=== PATIENT | male | born 1985 | race Caucasian/White ===

== ENCOUNTER 2016-10-31 17:47 | Emergency (ER) | payer OTHER ==
[2016-10-31 17:54] VITALS: BP 133/92; PULSE 83; RESP 18; TEMP 98.2; O2SAT 97
[2016-10-31] MEDS ORDERED: TDAP ADULT 0.5 ML INJ (BOOSTRIX) IM ONE (18:28)
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
[2016-10-31] MEDS ORDERED: SKIN ADHESIVE (DERMABOND) 1 EACH TP ONE (18:59)
--- NOTE | 2016-10-31 19:18 | CT ---
Noncontrast Head CT [address] of the Facial Bones History: Technique: Standard noncontrast head CT protocol utilizing axial images was acquired through the harshad varium. Images were reconstructed in multiple planes as well. Thin spiral images were obtained through the face from just below the mandible to above the frontal s inuses. The data were reconstructed in the sagittal and coronal plane. I also performed 3D reconstru ctions at the workstation to help the ER physician and surgeon visualize fractures if surgery is cont emplated. Dose reduction techniques were utilized. Findings: CT Head: The cerebral parenchyma has a normal attenuation throughout. There are no masses, intracrani al hemorrhage, subdural collections, or evidence of recent cerebral infarction. The bones are unrema rkable. The paranasal sinuses are clear. CT facial bones: Fracture of the right anterior nasal bone with depression about 2-3 mm. Otherwise, t he facial bones are intact without evidence of additional fracture. The paranasal sinuses are clear e xcept for focal incidental mucosal thickening left posterior ethmoid sinus. There are no air-fluid le vels. The orbital globes are normal in contour. There is mild soft tissue swelling inferior to the ri ght orbit and along the right side of the nasal bone. Impression: 1. Normal head CT. 2. Fracture of the right anterior nasal bone with minimal depression. No additional facial fractures seen These findings were discussed by telephone with Sandra Saldana NP at 1914 hours.
[2016-10-31] MEDS ORDERED: HYDROCOD/APAP 5/325 PREPACK#6 BTL TAKEHOME ONE (19:35)
== END 2016-10-31 19:58 | disposition home or self-care (01) ==
PROC: 0HQ1XZZ Repair Face Skin, External Approach (ICD-10-PCS; principal; 2016-10-31)
DX: S02.2XXA Fracture of nasal bones, initial encounter for closed fracture (principal); S01.21XA Laceration without foreign body of nose, initial encounter; S06.0X0A Concussion without loss of consciousness, initial encounter; Z23 Encounter for immunization; W01.198A Fall on same level from slipping, tripping and stumbling with subsequent striking against other object, initial encounter